=== PATIENT | male | born 1975 | race Caucasian/White ===

== ENCOUNTER 2017-04-30 00:10 | Observation (INO) | payer OTHER ==
--- NOTE | 2017-04-30 00:26 | EDPHY ---
H & P Stated Complaint: abd pain constipated HPI/ROS: HPI CHIEF COMPLAINT: Abdominal pain, nausea, vomiting HISTORY OF PRESENT ILLNESS: This patient very pleasant 41-year-old male who presents emergency room with nausea vomiting and abdominal pain x3 days. He describes his abdominal pain on the left side of his abdomen. Scribed sharp stabbing. No back pain. No urinary symptoms. He distally tells me he has had chills and sweats over the past 3 days. No recorded temperature. Denies chest pain. No headache or neck pain. Main complaint is nausea, vomiting nonbilious nonbloody. Abdominal pain. Progressively worse over the past 3 days. Additionally tells me is constipated have a significant bowel movement. Past Medical History: No significant medical history Past Surgical History: Appendectomy, tonsillectomy kidney stones Social History: Smokes marijuana, denies illicit drugs or alcohol. Lives locally. Works as a contractor. Family History: Noncontributory ROS REVIEW OF SYSTEMS: A comprehensive 10 point review of systems is otherwise negative aside from elements mentioned in the history of present illness. Exam Constitutional thin appearing, appears well nontoxic, triage nursing summary reviewed, vital signs reviewed, awake/alert. Eyes normal conjunctivae and sclera, EOMI, PERRLA. HENT normal inspection, atraumatic, moist mucus membranes, no epistaxis, neck supple/ no meningismus, no raccoon eyes. Respiratory clear to auscultation bilaterally, normal breath sounds, no respiratory distress, no wheezing. Cardiovascular rate normal, regular rhythm, no murmur, no edema, distal pulses normal. Gastrointestinal soft, mild tenderness left lower quadrant, no guarding or peritoneal signs,, normal bowel sounds, no distension, no pulsatile mass. Genitourinary no CVA tenderness. Musculoskeletal no midline vertebral tenderness, full range of motion, no calf swelling, no tenderness of extremities, no meningismus, good pulses, neurovascularly intact. Skin pink, warm, & dry, no rash, skin atraumatic. Neurologic awake, alert and oriented x 3, AAOx3, moves all 4 extremities equally, motor intact, sensory intact, CN II-XII intact, normal cerebellar, normal vision, normal speech. Psychiatric normal mood/affect. Heme/Lymph/Immune no lymphadenopathy. Differential diagnosis includes but is not limited to and in no particular order : Bowel obstruction, appendicitis, gallbladder disease, diverticulitis, colitis , enteritis, perforated viscus, gastritis, GERD, esophagitis, urinary tract infection, pyelonephritis, kidney stones Medical Decision Making: Plan for this patient IV establishment with IV fluid bolus, Zofran for nausea Dilaudid for pain control, CT scan abdomen pelvis with IV contrast, check urinalysis, drug screen, electrolytes, abdominal labs. Re- evaluate. Re-evaluation: 0151AM: Patient's CT scan results called to me. CT abdomen pelvis with IV contrast shows sigmoid diverticulitis. No free air. Additionally his CT scan shows a left lower lobe base lung nodule. He does smoke this will need to be followed up outpatient. Given the patient's white count, chills, subjective fever, nausea vomiting he will need to be hospitalized overnight for IV antibiotics bowel rest IV fluids. He has agreed for this. IV Invanz has been ordered. He is hemodynamically stable. The hospitalist has accepted this patient Dr. Carr. Source: Patient - Personal History Current Tetanus/Diphtheria Vaccine: No Current Tetanus Diphtheria and Acellular Pertussis (TDAP): No - Medical/Surgical History Hx Asthma: No Hx Chronic Respiratory Disease: No Hx Diabetes: No Hx Cardiac Disease: No Hx Renal Disease: No Hx Cirrhosis: No Hx Alcoholism: No Hx HIV/AIDS: No Hx Splenectomy or Spleen Trauma: No Other PMH: kidney stones - Social History Smoking Status: Current every day smoker Constitutional: Initial Vital Signs Temperature (C) 36.8 C 04/30/17 00:13 Heart Rate 74 04/30/17 00:13 Respiratory Rate 18 04/30/17 00:13 Blood Pressure 119/87 H 04/30/17 00:13 O2 Sat (%) 97 04/30/17 00:13 O2 Delivery Mode Room Air Allergies/Adverse Reactions: No Known Allergies Allergy (Unverified 01/11/12 12:08) Home Medications: Medication Instructions Recorded NK [No Known Home Meds] 04/30/17 Medical Decision Making - Data Points Laboratory Results: Laboratory Results 04/30/17 00:30 04/30/17 00:30 04/30/17 04/30/17 04/30/17 00:30 00:30 00:30 WBC 24.30 10^3/uL H 10^3/uL (3.80-9.50) RBC 5.75 10^6/uL 10^6/uL (4.40-6.38) Hgb 17.6 g/dL H g/dL (13.7-17.5) Hct 50.8 % % (40.0-51.0) MCV 88.3 fL fL (81.5-99.8) MCH 30.6 pg pg (27.9-34.1) MCHC 34.6 g/dL g/dL (32.4-36.7) RDW 12.7 % % (11.5-15.2) Plt Count 333 10^3/uL 10^3/uL (150-400) MPV 9.9 fL fL (8.7-11.7) Neut % (Auto) 81.3 % H % (39.3-74.2) Lymph % (Auto) 11.8 % L % (15.0-45.0) [place] % (Auto) 6.0 % % (4.5-13.0) Eos % (Auto) 0.0 % L % (0.6-7.6) Baso % (Auto) 0.2 % L % (0.3-1.7) Nucleat RBC Rel Count 0.0 % % (0.0-0.2) Absolute Neuts (auto) 19.75 10^3/uL H 10^3/uL (1.70-6.50) Absolute Lymphs (auto) 2.87 10^3/uL 10^3/uL (1.00-3.00) Absolute Monos (auto) 1.45 10^3/uL H 10^3/uL (0.30-0.80) Absolute Eos (auto) 0.01 10^3/uL L 10^3/uL (0.03-0.40) Absolute Basos (auto) 0.04 10^3/uL 10^3/uL (0.02-0.10) Absolute Nucleated RBC 0.00 10^3/uL 10^3/uL (0-0.01) Immature Gran % 0.7 % % (0.0-1.1) Immature Gran # 0.18 10^3/uL H 10^3/uL (0.00-0.10) PT 14.0 SEC SEC (12.0-15.0) INR 1.09 (0.83-1.16) APTT 34.2 SEC SEC (23.0-38.0) VBG Lactic Acid Sodium 140 mEq/L mEq/L (134-144) Potassium 4.0 mEq/L mEq/L (3.5-5.2) Chloride 99 mEq/L mEq/L (97-110) Carbon Dioxide 22 mEq/l mEq/l (22-31) Anion Gap 19 mEq/L H mEq/L (8-16) BUN 19 mg/dL mg/dL (7-23) Creatinine 1.4 mg/dL H mg/dL (0.7-1.3) Estimated GFR 56 Glucose 121 mg/dL H mg/dL (70-100) Calcium 10.6 mg/dL H mg/dL (8.5-10.4) Total Bilirubin 1.4 mg/dL mg/dL (0.1-1.4) Conjugated Bilirubin 0.3 mg/dL mg/dL (0.0-0.5) Unconjugated Bilirubin 1.1 mg/dL mg/dL (0.0-1.1) AST 26 IU/L IU/L (17-59) ALT 26 IU/L IU/L (21-72) Alkaline Phosphatase 61 IU/L IU/L (38-126) Total Protein 8.3 g/dL H g/dL (6.3-8.2) Albumin 5.1 g/dL H g/dL (3.5-5.0) Lipase 482 IU/L H IU/L (23-300) 04/30/17 00:30 WBC RBC Hgb Hct MCV MCH MCHC RDW Plt Count MPV Neut % (Auto) Lymph % (Auto) [place] % (Auto) Eos % (Auto) Baso % (Auto) Nucleat RBC Rel Count Absolute Neuts (auto) Absolute Lymphs (auto) Absolute Monos (auto) Absolute Eos (auto) Absolute Basos (auto) Absolute Nucleated RBC Immature Gran % Immature Gran # PT INR APTT VBG Lactic Acid 2.6 mmol/L H mmol/L (0.7-2.1) Sodium Potassium Chloride Carbon Dioxide Anion Gap BUN Creatinine Estimated GFR Glucose Calcium Total Bilirubin Conjugated Bilirubin Unconjugated Bilirubin AST ALT Alkaline Phosphatase Total Protein Albumin Lipase Medications Given: Discontinued Medications Hydromorphone HCl (Dilaudid) 0.5 mg IVP EDNOW ONE Stop: 04/30/17 00:32 Last Admin: 04/30/17 00:52 Dose: 0.5 mg Sodium Chloride (Ns) 1,000 mls @ 0 mls/hr IV EDNOW ONE; Wide Open PRN Reason: Protocol Stop: 04/30/17 00:32 Last Admin: 04/30/17 00:52 Dose: 1,000 mls Sodium Chloride (Ns) 1,000 mls @ 0 mls/hr IV ONCE ONE PRN Reason: Wide Open Stop: 04/30/17 01:38 Last Admin: 04/30/17 01:39 Dose: 1,000 mls Ondansetron HCl (Zofran) 4 mg IVP EDNOW ONE Stop: 04/30/17 00:32 Last Admin: 04/30/17 00:52 Dose: 4 mg Departure - Departure Disposition: [facility] Inpatient Acute Clinical Impression: Diverticulitis Qualifiers: Diverticulitis site: large intestine Diverticulitis bleeding: with bleeding Diverticulitis complication: unspecified complication status Qualified Code(s): K57.33 - Diverticulitis of large intestine without perforation or abscess with bleeding Condition: Fair Referrals: TYRELL MONDRAGON [Primary Care Provider] - As per Instructions
[2017-04-30] MEDS ORDERED: NS 1,000 ML IV ONE ×3 (00:31→02:45)
[2017-04-30] MEDS ORDERED: HYDROmorphONE/DILAUDID 1 MG/ML SYR IVP ONE ×2 (00:31→02:12)
[2017-04-30] MEDS ORDERED: ONDANSETRON 4 MG/2 ML VIAL IVP ONE (00:31)
[2017-04-30 00:38] LABS: % IMMATURE GRANULYOCYTES 0.7 % (0.0-1.1); ABSOLUTE IMMATURE GRANULOCYTES 0.18 10^3/uL (0.00-0.10); ADD DIFF? NO; ADD MORPH? NO; ADD SCAN? NO; ATYPICAL LYMPHOCYTE FLAG 0 (0-99); FRAGMENT RBC FLAG 0 (0-99); HEMATOCRIT 50.8 % (40.0-51.0); HEMOGLOBIN 17.6 g/dL (13.7-17.5); LEFT SHIFT FLG 0 (0-99); LIPEMIA HEMOLYSIS FLAG 90 (0-99); MEAN CELL HEMOGLOBIN 30.6 pg (27.9-34.1); MEAN CELL HEMOGLOBIN CONCENTR. 34.6 g/dL (32.4-36.7); MEAN CELL VOLUME 88.3 fL (81.5-99.8); MEAN PLATELET VOLUME 9.9 fL (8.7-11.7); PLATELET CLUMPS FLAG 0 (0-99); PLATELET COUNT 333 10^3/uL (150-400); RED BLOOD CELL COUNT 5.75 10^6/uL (4.40-6.38); RED CELL DISTRIBUTION WIDTH 12.7 % (11.5-15.2)
[2017-04-30 01:00] LABS: ALANINE AMINOTRANSFERASE 26 IU/L (21-72); ALBUMIN 5.1 g/dL (3.5-5.0); ALKALINE PHOSPHATASE 61 IU/L (38-126); ANION GAP 19 mEq/L (8-16); ASPARTATE AMINOTRANSFERASE 26 IU/L (17-59); BILIRUBIN,TOTAL 1.4 mg/dL (0.1-1.4); BILIRUBIN-CONJUGATED 0.3 mg/dL (0.0-0.5); BILIRUBIN-UNCONJUGATED 1.1 mg/dL (0.0-1.1); CALCIUM 10.6 mg/dL (8.5-10.4); CARBON DIOXIDE 22 mEq/l (22-31); CHLORIDE 99 mEq/L (97-110); CREATININE 1.4 mg/dL (0.7-1.3); GLOMERULAR FILTRATION RATE 56; GLUCOSE 121 mg/dL (70-100); SODIUM 140 mEq/L (134-144); TOTAL PROTEIN 8.3 g/dL (6.3-8.2)
[2017-04-30] MEDS ORDERED: IOPAMIDOL (ISOVUE-300) 100 ML BTL ONE (01:12)
[2017-04-30 01:18] LABS: INR 1.09 (0.83-1.16)
[2017-04-30 01:19] LABS: APTT 34.2 SEC (23.0-38.0)
[2017-04-30] MEDS ORDERED: ERTAPENEM 1 GM in NS 100 ML IV ONE (01:48)
[2017-04-30] MEDS ORDERED: HYDROmorphONE/DILAUDID 1 MG/ML SYR ONE (02:13)
[2017-04-30] MEDS ORDERED: ONDANSETRON 4 MG/2 ML VIAL IVP PRN (02:45)
[2017-04-30] MEDS ORDERED: ACETAMINOPHEN 325 MG TAB PO PRN (02:45)
[2017-04-30] MEDS ORDERED: ONDANSETRON DISINTEGRATING 4 MG TAB PO PRN (02:45)
[2017-04-30] MEDS ORDERED: oxyCODONE IR 5 MG TAB PO PRN (02:45)
--- NOTE | 2017-04-30 02:55 | PDGENHP ---
History and Physical - Chief Complaint Abdominal pain - History of Present Illness 41 yo M w/ no significant PMHx presents with several days of abdominal pain. The patient describes several days of abdominal pain. This worsened over the last 2 days and then he also began to experience fevers, chills, and pain with defecation attempts. He has been unable to have a bowel movement in the last few days and noticed a small amount of blood during his last attempt. History Information - Allergies/Home Medication List Allergies/Adverse Reactions: No Known Allergies Allergy (Unverified 01/11/12 12:08) Home Medications: NK [No Known Home Meds] 04/30/17 [Last Taken Unknown] I have personally reviewed and updated: family history, medical history - Past Medical History no pertinent PMH - Surgical History Reports: no pertinent surgical hx - Family History Positive for: connective tissue disorder Additional family history: Father had diverticulitis - Social History Smoking Status: Current every day smoker Tobacco Use: Cigarettes (20 pack year history) Alcohol Use: None Drug Use: Marijuana Review of Systems ROS: 10pt was reviewed & negative except for what was stated in HPI & below Physical Exam Temp Pulse Resp BP Pulse Ox 36.8 C 65 18 111/71 97 04/30/17 02:00 04/30/17 02:00 04/30/17 02:00 04/30/17 02:00 04/30/17 02:00 Constitutional: appears nourished, uncomfortable Eyes: PERRL, EOMI Ears, Nose, Mouth, Throat: moist mucous membranes, no oral mucosal ulcers Cardiovascular: regular rate and rhythym, no murmur, rub, or gallop Respiratory: no respiratory distress, clear to auscultation Gastrointestinal: normoactive bowel sounds, tenderness (LLQ), No guarding, No rebound, No distension Skin: warm, no rashes or abrasions Musculoskeletal: full muscle strength, no muscle tenderness Neurologic: AAOx3, CN II-XII Intact Psychiatric: interacting appropriately, not anxious Lab Data & Imaging Review 04/30/17 00:30 04/30/17 00:30 WBC 24.30 10^3/uL (3.80-9.50) H 04/30/17 00:30 RBC 5.75 10^6/uL (4.40-6.38) 04/30/17 00:30 Hgb 17.6 g/dL (13.7-17.5) H 04/30/17 00:30 Hct 50.8 % (40.0-51.0) 04/30/17 00:30 MCV 88.3 fL (81.5-99.8) 04/30/17 00:30 MCH 30.6 pg (27.9-34.1) 04/30/17 00:30 MCHC 34.6 g/dL (32.4-36.7) 04/30/17 00:30 RDW 12.7 % (11.5-15.2) 04/30/17 00:30 Plt Count 333 10^3/uL (150-400) 04/30/17 00:30 MPV 9.9 fL (8.7-11.7) 04/30/17 00:30 Neut % (Auto) 81.3 % (39.3-74.2) H 04/30/17 00:30 Lymph % (Auto) 11.8 % (15.0-45.0) L 04/30/17 00:30 [place] % (Auto) 6.0 % (4.5-13.0) 04/30/17 00:30 Eos % (Auto) 0.0 % (0.6-7.6) L 04/30/17 00:30 Baso % (Auto) 0.2 % (0.3-1.7) L 04/30/17 00:30 Nucleat RBC Rel Count 0.0 % (0.0-0.2) 04/30/17 00:30 Absolute Neuts (auto) 19.75 10^3/uL (1.70-6.50) H 04/30/17 00:30 Absolute Lymphs (auto) 2.87 10^3/uL (1.00-3.00) 04/30/17 00:30 Absolute Monos (auto) 1.45 10^3/uL (0.30-0.80) H 04/30/17 00:30 Absolute Eos (auto) 0.01 10^3/uL (0.03-0.40) L 04/30/17 00:30 Absolute Basos (auto) 0.04 10^3/uL (0.02-0.10) 04/30/17 00:30 Absolute Nucleated RBC 0.00 10^3/uL (0-0.01) 04/30/17 00:30 Immature Gran % 0.7 % (0.0-1.1) 04/30/17 00:30 Immature Gran # 0.18 10^3/uL (0.00-0.10) H 04/30/17 00:30 PT 14.0 SEC (12.0-15.0) 04/30/17 00:30 INR 1.09 (0.83-1.16) 04/30/17 00:30 APTT 34.2 SEC (23.0-38.0) 04/30/17 00:30 VBG Lactic Acid 2.6 mmol/L (0.7-2.1) H 04/30/17 00:30 Sodium 140 mEq/L (134-144) 04/30/17 00:30 Potassium 4.0 mEq/L (3.5-5.2) 04/30/17 00:30 Chloride 99 mEq/L (97-110) 04/30/17 00:30 Carbon Dioxide 22 mEq/l (22-31) 04/30/17 00:30 Anion Gap 19 mEq/L (8-16) H 04/30/17 00:30 BUN 19 mg/dL (7-23) 04/30/17 00:30 Creatinine 1.4 mg/dL (0.7-1.3) H 04/30/17 00:30 Estimated GFR 56 04/30/17 00:30 Glucose 121 mg/dL (70-100) H 04/30/17 00:30 Calcium 10.6 mg/dL (8.5-10.4) H 04/30/17 00:30 Total Bilirubin 1.4 mg/dL (0.1-1.4) 04/30/17 00:30 Conjugated Bilirubin 0.3 mg/dL (0.0-0.5) 04/30/17 00:30 Unconjugated Bilirubin 1.1 mg/dL (0.0-1.1) 04/30/17 00:30 AST 26 IU/L (17-59) 04/30/17 00:30 ALT 26 IU/L (21-72) 04/30/17 00:30 Alkaline Phosphatase 61 IU/L (38-126) 04/30/17 00:30 Total Protein 8.3 g/dL (6.3-8.2) H 04/30/17 00:30 Albumin 5.1 g/dL (3.5-5.0) H 04/30/17 00:30 Lipase 482 IU/L (23-300) H 04/30/17 00:30 Imaging Review: CT A/P notable for sigmoid colon diverticulitis. Assessment & Plan Assessment: 41 yo M presenting with acute sigmoid diverticulitis. Plan: 1. Acute diverticulitis - Uncomplicated with no abscess or perforation. WBC 24k but normal lactate; no sepsis physiology noted here. - IVF, NPO - S/p ertapenem in ED, will continue with CTX and Flagyl IV - Will order blood cultures Diet - NPO Code - Full PPx - SCDs Dispo - Admit to inpatient status noting need for IV antibiotics, likely for several days.
[2017-04-30 04:22] VITALS: O2SAT 96
[2017-04-30 04:54] LABS: % IMMATURE GRANULYOCYTES 0.9 % (0.0-1.1); ABSOLUTE IMMATURE GRANULOCYTES 0.19 10^3/uL (0.00-0.10); ADD DIFF? NO; ADD MORPH? NO; ADD SCAN? NO; ATYPICAL LYMPHOCYTE FLAG 0 (0-99); FRAGMENT RBC FLAG 0 (0-99); HEMATOCRIT 42.4 % (40.0-51.0); HEMOGLOBIN 14.4 g/dL (13.7-17.5); LEFT SHIFT FLG 0 (0-99); LIPEMIA HEMOLYSIS FLAG 90 (0-99); MEAN CELL HEMOGLOBIN 30.4 pg (27.9-34.1); MEAN CELL VOLUME 89.5 fL (81.5-99.8); MEAN PLATELET VOLUME 10.1 fL (8.7-11.7); PLATELET CLUMPS FLAG 0 (0-99); PLATELET COUNT 238 10^3/uL (150-400); RED BLOOD CELL COUNT 4.74 10^6/uL (4.40-6.38); RED CELL DISTRIBUTION WIDTH 12.7 % (11.5-15.2)
[2017-04-30 05:15] LABS: ANION GAP 10 mEq/L (8-16); CALCIUM 8.4 mg/dL (8.5-10.4); CARBON DIOXIDE 22 mEq/l (22-31); CHLORIDE 107 mEq/L (97-110); CREATININE 1.1 mg/dL (0.7-1.3); GLOMERULAR FILTRATION RATE > 60; GLUCOSE 101 mg/dL (70-100); POTASSIUM 4.3 mEq/L (3.5-5.2); SODIUM 139 mEq/L (134-144)
[2017-04-30 05:29] LABS: COLOR YELLOW; LEUKOCYTE ESTERASE,URINE NEGATIVE (NEGATIVE); NITRITE,URINE NEGATIVE (NEGATIVE)
[2017-04-30] MEDS ORDERED: NS W/ 20 KCl/L 1,000 ML IV SCH (09:00)
[2017-04-30] MEDS ORDERED: cefTRIAXone 2 GM in D5W 50 ML IV SCH (09:00)
[2017-04-30 11:27] VITALS: RESP 14
[2017-04-30 16:33] VITALS: BP 106/73; PULSE 58; TEMP 98.3
--- NOTE | 2017-04-30 17:09 | ASMTCMCOM ---
CM Note CM Note Notes: Pt admitted for acute diverticulitis, will receive IV antibiotics. No therapies ordered. CM to follow for d/c needs. Date Signed: 04/30/2017 05:08 PM Electronically Signed By:Lynette Walls
--- NOTE | 2017-04-30 21:23 | GDS ---
[f rep st] DISCHARGE SUMMARY DISCHARGE DIAGNOSES: Uncomplicated diverticulitis. HOSPITAL COURSE: Please see admission history and physical by Dr. Martell Carr. The patien t presented with left lower quadrant pain. CT scan showed mild diverticulitis. He was treated with ceftriaxone and metronidazole. The patient was requesting discharge. The covering physician was u [email or web address] so as a swing shift I came and discharged patient. He had an unremarkable abdominal exam . He was discharged on Cipro, Flagyl and a limited prescription for pain pills. /[id number]/MODL
== END 2017-04-30 18:59 | disposition home or self-care (01) ==
LOC: INTOOBSV 01:51 → F3N 03:45
PROVIDERS: ADMIT Student in an Organized Health Care Education/Training Program; ATTEND Internal Medicine
DX: K57.32 Diverticulitis of large intestine without perforation or abscess without bleeding (principal); F17.210 Nicotine dependence, cigarettes, uncomplicated
CPT/HCPCS: 80305; 96365; G0378; J0696; J1170; J1335; J2405; Q9967

== ENCOUNTER 2019-02-19 20:54 | Emergency (ER) | payer OTHER | END 2019-02-19 21:27 | disposition home or self-care (01) | LOC: CED 20:54 ==